=== PATIENT | male | born 1955 | race Caucasian/White ===

== ENCOUNTER 2019-07-04 05:08 | Observation (INO) | payer SELFPAY ==
[2019-07-04 06:26] LABS: #Basophils 0.1 thou/uL (0.0-0.2); #Eosinphils 0.1 thou/uL (0.0-0.7); #Lymphocytes 2.3 thou/uL (1.20-3.40); #Monocytes 1.7 thou/uL (0.11-0.59); #Neutrophils 7.2 thou/uL (1.40-6.50); %Basophils 0.6 % (0.0-1.0); %Eosinophils 1.3 % (0.0-10.0); %Lymphocytes 20.4 % (21.0-51.0); %Monocytes 14.9 % (0.0-10.0); %Neutrophils 62.8 % (42.0-75.0); Mean Corpuscular HGB CONC 34.2 g/dL (32.0-36.0); Mean Corpuscular Hemoglobin 30.8 pg (27.0-31.0); Mean Corpuscular Volume 90.1 fL (78.0-98.0); Mean Platelet Volume 6.4 fL (7.4-10.4); Platelet Count 341 thou/uL (130-400); RBC Distribution Width 13.9 % (11.5-14.5); Red Blood Cell (RBC) Count 4.87 mill/uL (4.70-6.10); White Blood Cell (WBC) Count 11.5 thou/uL (4.8-10.8)
[2019-07-04 06:48] LABS: ALT (SGPT) 26 U/L (8-55); AST (SGOT) 24 U/L (5-34); Albumin 4.5 g/dL (3.4-4.8); Alkaline Phosphatase 89 U/L (40-110); Anion Gap 13 mmol/L (10-20); BUN (Urea Nitrogen) 27 mg/dL (8.4-25.7); Bilirubin, Total 0.5 mg/dL (0.2-1.2); Calc. Creatinine Clearance 0 mL/min (70-130); Calcium 9.6 mg/dL (7.8-10.44); Carbon Dioxide 27 mmol/L (23-31); Chloride 106 mmol/L (98-107); Estimated GFR-MDRD 50; Globulin 3.6 g/dL (2.4-3.5); Glucose 95 mg/dL (80-115); Potassium 4.4 mmol/L (3.5-5.1); Protein, Total 8.1 g/dL (5.8-8.1); Sodium 142 mmol/L (136-145)
[2019-07-04 06:49] LABS: Acetaminophen Less than 6.0 mcg/mL (10.0-30.0); Alcohol Less than 10 mg/dL (Less than 10); Salicylate Less than 8.0 mg/dL (15.0-30.0)
[2019-07-04] MEDS ORDERED: Ondansetron ODT 4 MG TAB ONE (09:12)
--- NOTE | 2019-07-04 09:45 | CT ---
CT OF THE BRAIN WITHOUT CONTRAST: INDICATION: History of altered mental status. COMPARISON: Prior exam dated 06/03/2011. FINDINGS: No acute infarct, hemorrhage, or hydrocephalus is present. No midline shift is evident. There is a mucous retention cyst within the left maxillary sinus. Mastoid air cells are clear. The skull is in tact. IMPRESSION: No acute intracranial abnormality. POS: BH
[2019-07-04 11:41] LABS: Amphetamine Detected (NotDetected); Medtox Reader # READER 4; Methamphetamine Detected (NotDetected)
[2019-07-04 11:42] LABS: Barbiturates Screen Not Detected (NotDetected); Benzodiazepine Screen Detected (NotDetected); Cocaine Metabolite Screen Not Detected (NotDetected); Medtox Control Line Valid? VALID (VALID); Methadone Not Detected (NotDetected); Opiate Screen Not Detected (NotDetected); Oxycodone Screen Not Detected (NotDetected); Phencyclidine (PCP) Not Detected (NotDetected); THC/Cannabinoid Screen Not Detected (NotDetected); Tricyclic Screen Not Detected (NotDetected)
[2019-07-04] MEDS ORDERED: Acetaminophen 650 MG Suppository PR PRN (15:08)
[2019-07-04] MEDS ORDERED: Calcium Carbonate 500 MG ChewTAB PO PRN (15:08)
[2019-07-04] MEDS ORDERED: Acetaminophen 325 MG TAB PO PRN (15:08)
[2019-07-04] MEDS ORDERED: Ondansetron PF 4 MG/2 ML Vial IVP PRN (15:08)
[2019-07-04] MEDS ORDERED: Ondansetron ODT 4 MG TAB PO PRN (15:08)
[2019-07-04] MEDS ORDERED: Senokot S 8.6-50 MG TAB PO PRN (15:08)
[2019-07-04] MEDS ORDERED: Dextrose 5 %-0.45 % NaCl 1,000 ML IV SCH (15:15)
[2019-07-04] MEDS ORDERED: Aspirin 81 mg Enteric Coated Tablet PO SCH (15:15)
--- NOTE | 2019-07-04 15:25 | HP ---
PRIMARY CARE PHYSICIAN: [facility]. CHIEF COMPLAINT: Altered mentation. HISTORY OF PRESENT ILLNESS: The patient is a 63-year-old male with tobacco dependence, presented to the emergency room this morning with altered mentation. EMS found him outside someone else's mobile home parking. He was screaming for help. His blood sugar was 141. His speech was slurry by EMS. No information is available from the patient due to current mentation. In the emergency room, initial vital signs showed temperature 98.7, respirations of 16, and pulse of 78 with a blood pressure 128/86 with O2 saturation of 98% on room air. His creatinine was 1.43 with BUN 27. His baseline creatinine is 0.79. His urine drug screen was positive for amphetamines, methamphetamines, and benzodiazepines. He received Zofran with IV fluids in the emergency room. PAST MEDICAL HISTORY: 1. Tobacco dependence. 2. COPD. 3. History of seizure disorder in the remote past. PAST SURGICAL HISTORY: None per ER record. ALLERGIES: THE PATIENT IS ALLERGIC TO KEFLEX. CURRENT HOME MEDICATION: Unavailable at this time. SOCIAL HISTORY: The patient has a long history of tobacco dependence. It is unclear whether he uses any drugs on a daily basis. FAMILY HISTORY: Cannot be obtained from the patient due to current cognitive status. REVIEW OF SYSTEMS: Cannot be obtained from the patient due to current cognitive status. PHYSICAL EXAMINATION: VITAL SIGNS: As discussed above. GENERAL: A 63-year-old male, lethargic. Opens eyes on verbal commands. HEENT: Head, atraumatic and normocephalic. Sclerae anicteric. Dry mucous membranes. No oral lesion. Poor hygiene. NECK: Supple. No JVD. No neck stiffness. LUNGS: Showed diminished air entry at bilateral bases with scattered rhonchi. No rales. LUNGS: Symmetrical. HEART: S1 and S2 present. Regular. No rubs or gallops. ABDOMEN: Soft and nontender. Bowel sounds present. No rebound or guarding. EXTREMITIES: No edema or calf tenderness. NEUROLOGIC: Could not be reliably done due to current cognitive status. The patient is withdrawing to pain. He is moving all four extremities spontaneously. PSYCHIATRY: Could not be reliably done due to current cognitive status. As discussed above. LYMPH NODES: No palpable lymph nodes in the neck. Peripheral, vascular, and radial pulses palpable bilaterally. MUSCULOSKELETAL: No joint swelling or tenderness. LABORATORY FINDINGS: WBC 11.5 with hemoglobin 15. Creatinine 1.43 with baseline creatinine 0.79. Sodium 142, potassium 4.4 with chloride 106, and bicarb 27. LFTs in normal range. Urine drug screen as discussed above. Troponin was negative. Ammonia was normal. CT scan of the brain by my review was negative for acute findings. Telemetry monitoring by my review showed sinus rhythm. EKG by my review showed sinus rhythm. IMPRESSION: 1. Toxic metabolic encephalopathy, probably secondary to polysubstance abuse. 2. Acute kidney injury on chronic kidney disease, stage 2. 3. Tobacco dependence. 4. Chronic obstructive pulmonary disease. 5. History of seizure disorder. PLAN: The patient will be monitored on the medical floor with sitter. We will start him on IV hydration. Neuro checks. Recheck labs in the a.m. IV hydration. Vital signs q.[address] scan of the brain is unremarkable. Plan of care was discussed with the patient in detail. No family at the bedside. Job ID: [id number]
[2019-07-04 16:36] VITALS: BP 137/91; TEMP 97.4; BMI 28.2
[2019-07-04] MEDS ORDERED: traMADol HCl 50 MG TAB PO PRN (17:43)
[2019-07-04] MEDS ORDERED: Famotidine/PF 20 mg/2ml Vial SLOW IVP SCH (21:00)
[2019-07-04] MEDS ORDERED: Mirtazapine 15 MG Soltab PO SCH (21:00)
[2019-07-04] MEDS ORDERED: Famotidine 20 MG TAB PO SCH (21:00)
[2019-07-05] MEDS ORDERED: Aspirin 81 mg Enteric Coated Tablet PO SCH (09:00)
[2019-07-05] MEDS ORDERED: Enoxaparin Sodium 40 MG/0.4 ML SYRINGE SC SCH (09:00)
[2019-07-05] MEDS ORDERED: Pramipexole Di-HCl 0.25 MG TAB PO SCH (09:00)
--- NOTE | 2019-07-05 15:46 | DIS ---
DATE OF ADMISSION: 07/04/2019 DATE OF DISCHARGE: 07/04/2019 DISPOSITION: The patient signed against medical advice. BRIEF HOSPITAL COURSE: The patient is a 63-year-old male, who was admitted earlier with altered mentation. Please refer to the history and physical for further details. He was found outside someone else's mobile home parking. He was screaming for help. His urine drug screen was positive for amphetamines, methamphetamines, and benzodiazepines. He was admitted to the medical floor. However, later on his mentation significantly improved, he signed against medical advise. The family came and picked him up. FINAL DIAGNOSES: 1. Toxic metabolic encephalopathy secondary to polysubstance abuse. 2. Acute kidney injury on chronic kidney disease stage 2. 3. Tobacco dependence. 4. Chronic obstructive pulmonary disease. 5. History of seizure disorder. 6. Mild leukocytosis unlikely to be infectious. 7. Repeat basic metabolic profile after 1 week is recommended. Job ID: [id number]
== END 2019-07-04 19:25 | disposition left against medical advice (07) ==
LOC: ERS 05:08 → ERHOLD 12:30 → T4-A 16:27
PROVIDERS: ADMIT Internal Medicine; ATTEND Internal Medicine
DX: F19.10 Other psychoactive substance abuse, uncomplicated (principal); G92 Toxic encephalopathy; T50.905A Adverse effect of unspecified drugs, medicaments and biological substances, initial encounter; J44.9 Chronic obstructive pulmonary disease, unspecified; G40.909 Epilepsy, unspecified, not intractable, without status epilepticus; F17.210 Nicotine dependence, cigarettes, uncomplicated; N18.2 Chronic kidney disease, stage 2 (mild); N17.9 Acute kidney failure, unspecified; D72.829 Elevated white blood cell count, unspecified; Z53.29 Procedure and treatment not carried out because of patient's decision for other reasons; Z79.899 Other long term (current) drug therapy; Z88.1 Allergy status to other antibiotic agents
CPT/HCPCS: 36415; 70450; 80053; 80306; 80307; 82140; 84484; 85025; 93005; 96360; G0378; Q0162